=== PATIENT | male | born 1955 | race Asian ===

== ENCOUNTER → 2016-08-05 | Emergency (ER) | payer SELFPAY ==
[~2016-08-05] VITALS: Ht 177.8 cm; Wt 80.0 kg
[~2016-08-05] MED LIST: ACET500C5 PO; DIPHTH/TET/ACEL PERTUSS (ADULT) 0.5 ML VIAL IM* ONE; ERYTOPOI LEFT EYE; FLUORESCEIN STRIP LEFT EYE ONE; IBUP-1542 PO; TETRACAINE 0.5% 4 ML OPH LEFT EYE ONE
[2016-08-05 05:01] VITALS: Ht 177.8 cm; Wt 80.0 kg
--- NOTE | 2016-08-05 06:39 | ERD ---
ER Documentation Chief Complaint Date/Time DATE: 08/05/16 TIME: 06:36 Chief Complaint left eye redness/ pain"poked "w/ a wire while working in his job HPI This is a 60-year-old male who presents to the emergency department today complaining of some pain around his left eye after being poked in the eye this morning while at work. Patient states he was on doing some equipment 1 8 wire poked him in the left eye. States he is unsure if he has had his tetanus shot within the last 5 years. States he thought he was bleeding. States he has some mild blurred vision but has a history of cataracts. ROS All systems reviewed and are negative except as per history of present illness. Medications Home Meds Active Scripts Acetaminophen* (Tylophen*) 500 Mg Capsule, 1 CAP PO Q6H Y for PAIN AND OR ELEVATED TEMP, #30 CAP Prov:DIMITRI ERWIN PA-C 08/05/16 Ibuprofen* (Motrin*) 600 Mg Tab, 600 MG PO Q6, #30 TAB Prov:DIMITRI ERWIN PA-C 08/05/16 Erythromycin* (Erythromycin* Ophthalmic) 1 Applic Oint, 1 APPLIC LEFT EYE QID for 7 Days, EA Prov:DIMITRI ERWIN PA-C 08/05/16 Allergies Allergies: Coded Allergies: No Known Allergy (Unverified , 08/05/16) PMhx/Soc Hx Miscellaneous Medical Probl: Yes (cataract) Physical Exam Vitals Vital Signs Date Time Temp Pulse Resp B/P Pulse Ox O2 Delivery O2 Flow Rate FiO2 08/05/16 05:01 98.2 77 20 178/92 100 Physical Exam Const: No acute distress Head: Atraumatic Eyes: Left eye with mild conjunctival erythema. No evidence of foreign body. Area of erythema underneath left eyelid. No bleeding ENT: Normal External Ears, Nose and Mouth. Neck: Full range of motion..~ No meningismus. Resp: Clear to auscultation bilaterally Cardio: Regular rate and rhythm, no murmurs Skin: No petechiae or rashes Neur: Awake and alert Psych: Normal Mood and Affect Results 24 hrs Current Medications Medications (Trade) Dose Ordered Sig/Giovanni Route PRN Reason Start Time Stop Time Status Last Admin Dose Admin Diphtheria/ Tetanus/Acell Pertussis (Adacel) 0.5 ml ONCE ONCE IM* 08/05/16 06:30 3 06:31 DC 08/05/16 06:32 Fluorescein Sodium (Idjfw-[id number]-Ujgmc) 1 strip ONCE ONCE LEFT EYE 08/05/16 06:30 3 06:31 DC Tetracaine HCl (Tetracaine 0.5% Steri-Unit [place]) 1 drop ONCE ONCE LEFT EYE 08/05/16 06:30 3 06:31 DC Procedures/MDM This is a 60-year-old male who presents the emergency department today complaining of some left eye pain after being poked in the eye this morning while at work with a wire. Patient's visual acuity is left eye 20/40 Right eye 20/50 Bilaterally 20/30 Reason complaint is in his left eye. I did give him a tetanus shot as he was not up-to-date on his vaccines are also did a [place] lamp exam with fluorescein stain. There was no evidence of foreign body or corneal abrasion on exam however patient will be given a prescription for erythromycin. Low suspicion for globe rupture, hyphema, conjunctivitis. Patient will be given a prescription for Motrin, Tylenol and erythromycin. 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 I have given him referral information for [facility]. At this time the patient is stable for discharge and outpatient management. Patient should follow up with their PCP in the next 1-2 days. They may return to the emergency department sooner for any persistent or worsening of symptoms. Patient and family understood and agreed with the plan. Departure Diagnosis: Primary Impression: Eye injury Encounter type: initial encounter Laterality: left Qualified Code: S05.92XA - Left eye injury, initial encounter Condition: DIMITRI Masters PA-C Aug 05, 2016 06:39
== END | disposition home or self-care (01) ==
LOC: FTE 04:57
DX: S05.92XA Unspecified injury of left eye and orbit, initial encounter (principal); X58.XXXA Exposure to other specified factors, initial encounter; Y92.89 Other specified places as the place of occurrence of the external cause; Z23 Encounter for immunization
CPT/HCPCS: 90471; 90715